=== PATIENT | female | born 1995 | race Hispanic/Latino ===

== ENCOUNTER 2017-10-27 11:02 | Emergency (ER) | payer SELFPAY ==
[2017-10-27 11:36] VITALS: BP 124/82
[2017-10-27] MEDS ORDERED: PERCOCET 5/325 PO ONE (12:08)
[2017-10-27 12:26] LABS: HCG Qualitative,Urine Negative (Negative)
--- NOTE | 2017-10-27 12:43 | Emergency Department Report ---
ED Lower Extremity HPI - General Chief Complaint: Fall Stated Complaint: PAIN FROM LEFT KNEE RADIATING UP TO HIP Time Seen by Provider: 10/27/17 11:58 Source: patient Mode of arrival: Ambulatory Limitations: No Limitations - History of Present Illness Initial Comments: 22-year-old female comes in today complaining of left thigh pain. Patient ports that she had fallen while at her son's field day today. Patient reports that the pain is probably consistent dull and achy but with movement it feels likes it's tearing. Patient reports she is not able to bear much weight. She reports bending it makes it worse keeping it straight makes it better. She reports that her will pick her up. She does admit to having a past medical history of depression and anxiety she's currently taking Zoloft 50 mg by mouth for the last 6 years. Injury: Thigh: Left (pain worse with bending feels like it's tearing when she bends it) Type of Injury: unknown Place: street/outdoors Severity scale (0 -10): 10 Improves With: nothing Worsens With: weight bearing, movement Context: fall (ending) - Related Data Previous Rx's Medication Instructions Recorded Last Taken Type Ibuprofen [Motrin 800 MG tab] 800 mg PO Q8HR PRN #30 tablet 10/27/17 Unknown Rx Allergies Allergy/AdvReac Type Severity Reaction Status Date / Time No Known Allergies Allergy Unverified 10/27/17 11:33 ED Review of Systems ROS: Stated complaint: PAIN FROM LEFT KNEE RADIATING UP TO HIP Other details as noted in HPI Constitutional: denies: chills, fever Eyes: denies: eye pain, eye discharge, vision change ENT: denies: ear pain, throat pain Respiratory: denies: cough, shortness of breath, wheezing Cardiovascular: denies: chest pain, palpitations Endocrine: no symptoms reported Gastrointestinal: denies: abdominal pain, nausea, diarrhea Genitourinary: denies: urgency, dysuria, discharge Musculoskeletal: other (left thigh pain) Skin: denies: rash, lesions Neurological: denies: headache, weakness, paresthesias Psychiatric: denies: anxiety, depression Hematological/Lymphatic: denies: easy bleeding, easy bruising ED Past Medical Hx - Past Medical History Previous Medical History?: Yes Hx Psychiatric Treatment: Yes (DEPRESSION, ANXIETY) Additional medical history: VAGINAL DELIVERY X2, HYPOTHYROIDISM - Surgical History Past Surgical History?: No - Social History Smoking Status: Former Smoker Substance Use Type: Prescribed - Medications Home Medications: Home Medications Medication Instructions Recorded Confirmed Last Taken Type Ibuprofen [Motrin 800 MG tab] 800 mg PO Q8HR PRN #30 tablet 10/27/17 Unknown Rx ED Physical Exam - General Limitations: No Limitations General appearance: alert, in no apparent distress - Head Head exam: Present: atraumatic, normocephalic - Eye Eye exam: Present: normal appearance - ENT ENT exam: Present: mucous membranes moist - Neck Neck exam: Present: normal inspection - Respiratory Respiratory exam: Present: normal lung sounds bilaterally. Absent: respiratory distress - Cardiovascular Cardiovascular Exam: Present: regular rate, normal rhythm. Absent: systolic murmur, diastolic murmur, rubs, gallop - GI/Abdominal GI/Abdominal exam: Present: soft, normal bowel sounds - Extremities Exam Extremities exam: Present: normal inspection - Expanded Lower Extremity Exam Left Hip exam: Present: normal inspection, full ROM. Absent: tenderness Upper Leg exam: Present: full ROM, tenderness (thigh pain) Knee exam: Present: normal inspection, full ROM. Absent: tenderness Lower Leg exam: Present: normal inspection, full ROM. Absent: tenderness Ankle exam: Present: normal inspection, full ROM. Absent: tenderness Foot/Toe exam: Present: normal inspection, full ROM. Absent: tenderness Neuro vascular tendon exam: Present: no vascular compromise Gait: Positive: observed and limited by pain - Back Exam Back exam: Present: normal inspection - Neurological Exam Neurological exam: Present: alert, oriented X3 - Psychiatric Psychiatric exam: Present: normal affect, normal mood - Skin Skin exam: Present: warm, dry, intact, normal color. Absent: rash ED Course Vital Signs 10/27/17 11:33 Temperature 97.5 F L Pulse Rate 80 Respiratory 20 Rate Blood Pressure 124/82 O2 Sat by Pulse 99 Oximetry ED Lower Extremity MDM - Radiology Data Radiology results: report reviewed, image reviewed LEFT FEMUR: HISTORY: Left thigh pain AP and lateral views of the femur demonstrate normal mineralization and contours for this patient's age. No destructive changes are noted and the adjacent soft tissues are normal. IMPRESSION: Normal left femur. Transcribed By: TTR Dictated By: LANCE MAC JR, MD Electronically Authenticated By: LANCE MAC JR, MD Signed Date/Time: 10/27/17 1410 DD/ 1409 TD/TT: 10/27/17 1410 - Medical Decision Making History of evaluated by this provider fracture. We'll do an x-ray of her left femur to rule out any fractures. Pain medication Percocet 5/325. X-ray comes back normal examination. We will discharge patient on ibuprofen 800 mg every 8 hours. Discussed the patient she should follow up with her primary care provider if symptoms persist or gets worse. Critical care attestation.: If time is entered above; I have spent that time in minutes in the direct care of this critically ill patient, excluding procedure time. ED Disposition Clinical Impression: Pain in left thigh Disposition: - TO HOME OR SELFCARE Is pt being admited?: No Does the pt Need Aspirin: No Condition: Stable Additional Instructions: Please take pain medication as prescribed. If symptoms persist or gets worst please follow up with your primary Care Provider. Prescriptions: Ibuprofen [Motrin 800 MG tab] 800 mg PO Q8HR PRN #30 tablet PRN Reason: Pain Referrals: PRIMARY CARE, [Primary Care Provider] - 3-5 Days Forms: Work/School Release Form(ED)
--- NOTE | 2017-10-27 14:19 | XRay Report ---
LEFT FEMUR: HISTORY: Left thigh pain AP and lateral views of the femur demonstrate normal mineralization and contours for this patient's age. No destructive changes are noted and the adjacent soft tissues are normal. IMPRESSION: Normal left femur.
== END 2017-10-27 15:11 | disposition home or self-care (01) ==
LOC: ED 11:02
DX: M79.652 Pain in left thigh (principal); E03.9 Hypothyroidism, unspecified; Z87.891 Personal history of nicotine dependence
CPT/HCPCS: 81025; 99284